=== PATIENT | male | born 1955 | race Caucasian/White ===

== ENCOUNTER 2018-07-03 05:49 | Inpatient (IN) ==
[2018-06-27 10:23] LABS: Basophils % 0.6 % (0.0-0.8); Hematocrit 50.2 VOL% (42.0-52.0); Hemoglobin 16.9 GM/DL (14.0-18.0); Immature Granulocytes % 0.3 %; Immature Granulocytes Absolute 0.02 #; Lymphocytes # 1.9 10*3/uL (1.4-4.0); Lymphocytes % 29.2 % (21.2-54.2); Mean Corpuscular HGB Conc 33.7 GM/DL (32-36); Mean Corpuscular Hemoglobin 29 PG (27-34); Mean Corpuscular Volume 85.4 FL (87-102); Mean Platelet Volume 10.5 FL (9.6-12.0); Monocytes # 0.7 10*3/uL (0.11-0.8); Neutrophils % 59.9 % (38.7-73.9); Platelet Count 181 T/CUMM (130-400); Red Blood Count 5.88 MC/CUMM (3.8-5.5); Red Cell Distribution Width 12.2 % (9.3-17.3); White Blood Count 6.6 T/CUMM (4-12)
[2018-06-27 10:53] LABS: Albumin 3.9 G/DL (3.4-5.0); Bilirubin,Total 0.6 MG/DL (0.2-1.0); Calcium 8.9 MG/DL (8.5-10.1); Osmolality,Calculated 281.4 MOS/KG (273-304); Potassium 4.1 MMOL/L (3.5-5.1); Total Protein 7.7 G/DL (6.4-8.3)
[2018-07-03] MEDS ORDERED: cefTRIAXone 1,000 MG VIAL ONE (05:51)
[2018-07-03] MEDS ORDERED: cefTRIAXone 1,000 MG in SYRINGE 1 EACH IV ONE (06:00)
[2018-07-03] MEDS: LACTATED RINGERS 1,000 ML IV SCH ×2 (06:30→11:00)
[2018-07-03] MEDS ORDERED: INDOCYANINE GREEN 25 MG VIAL IV ONE (06:38)
[2018-07-03] MEDS ORDERED: ROPIVACAINE 0.5% 30 ML VIAL ONE ×2 (06:38→12:09)
[2018-07-03] MEDS ORDERED: ONDANSETRON 4 MG/2 ML VIAL IV PRN (12:03)
[2018-07-03] MEDS ORDERED: diphenhydrAMINE 50 MG/1 ML VIAL IV PRN (12:03)
[2018-07-03] MEDS ORDERED: PANTOPRAZOLE 40 MG TABLET PO PRN (12:08)
[2018-07-03] MEDS ORDERED: hydrALAZINE 25 MG TABLET PO PRN (12:10)
[2018-07-03] MEDS ORDERED: MANNITOL 12.5 GM/50 ML VIAL IV ONE (12:29)
[2018-07-03] MEDS ORDERED: SEVOFLURANE 1 UNIT/15 MINUTE INH ONE (12:29)
[2018-07-03] MEDS ORDERED: PROPOFOL 200 MG/20 ML VIAL IV ONE (12:29)
[2018-07-03] MEDS ORDERED: ACETAMINOPHEN 1,000 MG/100 ML VIAL IV ONE (12:30)
[2018-07-03] MEDS ORDERED: GLYCOPYRROLATE 0.4 MG/2 ML VIAL ONE (12:30)
[2018-07-03] MEDS ORDERED: ONDANSETRON 4 MG/2 ML VIAL ONE (12:30)
[2018-07-03] MEDS ORDERED: MIDAZOLAM 2 MG/2 ML VIAL ONE (12:30)
[2018-07-03] MEDS ORDERED: PHENYLEPHRINE 1 MG/10 ML SYRINGE IV ONE (12:30)
[2018-07-03] MEDS ORDERED: fentaNYL 100 MCG/2 ML VIAL ONE (12:30)
[2018-07-03] MEDS ORDERED: LACTATED RINGERS 1,000 ML IV ONE (12:31)
[2018-07-03] MEDS ORDERED: NEOSTIGMINE 10 MG/10 ML VIAL ONE (12:31)
[2018-07-03] MEDS ORDERED: ROCURONIUM 100 MG/10 ML VIAL IV ONE (12:31)
[2018-07-03 12:50] LABS: Hematocrit 52.3 VOL% (42.0-52.0); Hemoglobin 17.3 GM/DL (14.0-18.0)
[2018-07-03 13:14] LABS: Apearance,Urine CLEAR (Clear); Bilirubin,Urine Negative (Negative); Blood, Urine Small mg/dL (Negative); Glucose,Urine (UA) Negative (Negative); Hyaline Casts,Urine 4 /LPF (0-3); Ketones,Urine Negative (Negative); Mucus,Urine Occasional /LPF (Occasional); Nitrite,Urine Negative (Negative); Protein,Urine Negative; RBC,Urine 7 /HPF (0-4); Urine Color Yellow (Yellow); Urine Specific Gravity 1.018 (1.001-1.035); Urine Urobilinogen < 2.0 EU/DL (0.2-1.0); WBC,Urine 2 /HPF (0-6)
[2018-07-03] MEDS: SODIUM CHLORIDE 0.9% 1,000 ML IV SCH ×2 (13:58→22:19)
[2018-07-03] MEDS: ACETAMINOPHEN 500 MG TABLET PO SCH ×2 (13:58→20:22)
[2018-07-03] MEDS: oxyCODONE/ACETAMINOPHEN 5-325 MG TABLET PO PRN (15:40)
[2018-07-03] MEDS ORDERED: DOCUSATE SODIUM 100 MG CAPSULE PO PRN (15:49)
[2018-07-03 16:36] LABS: Albumin 3.4 G/DL (3.4-5.0); Bilirubin,Total 0.5 MG/DL (0.2-1.0); Calcium 8.5 MG/DL (8.5-10.1); Osmolality,Calculated 280.7 MOS/KG (273-304); Potassium 4.6 MMOL/L (3.5-5.1); Thyroid Stimulating Hormone 1.17 uIU/ml (0.358-3.74); Total Protein 6.9 G/DL (6.4-8.3)
[2018-07-03] MEDS: CALCIUM CARBONATE CHEW 500 MG TABLET PO PRN ×2 (17:29→20:22)
[2018-07-03] MEDS: HYDROmorphone 2 MG/1 ML VIAL IV PRN (20:21)
[2018-07-03] MEDS: amLODIPine 10 MG TABLET PO SCH (20:22)
[2018-07-04] MEDS: HYDROmorphone 2 MG/1 ML VIAL IV PRN ×5 (03:35→21:04)
[2018-07-04] MEDS: CALCIUM CARBONATE CHEW 500 MG TABLET PO PRN ×2 (03:38→07:57)
[2018-07-04 05:29] LABS: Basophils % 0.3 % (0.0-0.8); Hematocrit 44.8 VOL% (42.0-52.0); Hemoglobin 14.7 GM/DL (14.0-18.0); Immature Granulocytes % 0.3 %; Immature Granulocytes Absolute 0.03 #; Lymphocytes # 2.5 10*3/uL (1.4-4.0); Lymphocytes % 21.4 % (21.2-54.2); Mean Corpuscular HGB Conc 32.8 GM/DL (32-36); Mean Corpuscular Hemoglobin 29 PG (27-34); Mean Platelet Volume 11.1 FL (9.6-12.0); Monocytes # 1.3 10*3/uL (0.11-0.8); Monocytes % 11.1 % (1.7-12.7); Neutrophils # 7.7 10*3/uL (1.4-7.4); Neutrophils % 66.9 % (38.7-73.9); Platelet Count 159 T/CUMM (130-400); Red Blood Count 5.09 MC/CUMM (3.8-5.5); Red Cell Distribution Width 12.6 % (9.3-17.3); White Blood Count 11.4 T/CUMM (4-12)
[2018-07-04] MEDS: SODIUM CHLORIDE 0.9% 1,000 ML IV SCH ×2 (05:36→13:25)
[2018-07-04 05:51] LABS: Risk Ratio 3.57; VLDL CHOLESTEROL 28.6 MG/DL
[2018-07-04 06:06] LABS: Calcium 8.3 MG/DL (8.5-10.1); Osmolality,Calculated 279.5 MOS/KG (273-304); Potassium 3.7 MMOL/L (3.5-5.1)
[2018-07-04] MEDS: LACTATED RINGERS 1,000 ML IV SCH (07:41)
[2018-07-04] MEDS: DOCUSATE SODIUM 100 MG CAPSULE PO SCH ×2 (08:45→21:05)
[2018-07-04] MEDS: PANTOPRAZOLE 40 MG TABLET PO SCH ×2 (08:46→21:05)
[2018-07-04] MEDS ORDERED: SIMETHICONE CHEW 80 MG TABLET PO PRN (09:58)
[2018-07-04] MEDS: amLODIPine 10 MG TABLET PO SCH (21:05)
[2018-07-05] MEDS: oxyCODONE/ACETAMINOPHEN 5-325 MG TABLET PO PRN ×3 (04:35→22:18)
[2018-07-05] MEDS: SODIUM CHLORIDE 0.9% 1,000 ML IV SCH (06:12)
[2018-07-05 06:32] LABS: Basophils % 0.3 % (0.0-0.8); Eosinophils % 0.1 % (0.00-10.9); Hematocrit 44.7 VOL% (42.0-52.0); Hemoglobin 14.5 GM/DL (14.0-18.0); Immature Granulocytes % 0.5 %; Immature Granulocytes Absolute 0.05 #; Lymphocytes # 1.2 10*3/uL (1.4-4.0); Mean Corpuscular HGB Conc 32.4 GM/DL (32-36); Mean Corpuscular Hemoglobin 28 PG (27-34); Mean Corpuscular Volume 87.5 FL (87-102); Mean Platelet Volume 10.8 FL (9.6-12.0); Monocytes # 1.2 10*3/uL (0.11-0.8); Monocytes % 11.3 % (1.7-12.7); Neutrophils # 8.4 10*3/uL (1.4-7.4); Neutrophils % 76.8 % (38.7-73.9); Platelet Count 140 T/CUMM (130-400); Red Blood Count 5.11 MC/CUMM (3.8-5.5); Red Cell Distribution Width 12.4 % (9.3-17.3)
[2018-07-05 06:53] LABS: Calcium 8.6 MG/DL (8.5-10.1); Potassium 3.9 MMOL/L (3.5-5.1)
[2018-07-05] MEDS: LACTATED RINGERS 1,000 ML IV SCH (07:17)
[2018-07-05] MEDS ORDERED: BISACODYL 10 MG SUPP RECTAL ONE (08:21)
[2018-07-05] MEDS: CALCIUM CARBONATE CHEW 500 MG TABLET PO PRN (09:18)
[2018-07-05] MEDS: hydrALAZINE 10 MG TABLET PO SCH ×2 (09:19→20:42)
[2018-07-05] MEDS: PANTOPRAZOLE 40 MG TABLET PO SCH ×2 (09:19→20:42)
[2018-07-05] MEDS: DOCUSATE SODIUM 100 MG CAPSULE PO SCH ×2 (09:19→20:42)
[2018-07-05] MEDS: amLODIPine 10 MG TABLET PO SCH (20:42)
[2018-07-06] MEDS: hydrALAZINE 10 MG TABLET PO SCH (07:43)
[2018-07-06] MEDS: DOCUSATE SODIUM 100 MG CAPSULE PO SCH (07:43)
[2018-07-06] MEDS: PANTOPRAZOLE 40 MG TABLET PO SCH (07:44)
[2018-07-06 08:32] VITALS: BP 137/82
== END 2018-07-06 08:32 | disposition home or self-care (01) | DRG 657 ==
LOC: N.OR 05:49 → N.SDSINP 05:49 → N.5E 12:03
PROVIDERS: ADMIT Surgery; ATTEND Surgery